=== PATIENT | male | born 1945 | race Caucasian/White ===

== ENCOUNTER 2025-03-15 13:52 | Outpatient (REF) | payer MEDICARE, SELFPAY ==
--- NOTE | ~2025-03-15 | XR_ITS ---
EXAMINATION: XR LUMBAR SPINE 4 OR MORE VIEWS HISTORY: M48.062 - Spinal stenosis, lumbar region with neurogenic claudication COMPARISON: There are no prior studies for comparison. FINDINGS: AP, and neutral, flexion, and extension lateral views of the lumbar spine are submitted. The bones are osteopenic. There is a moderate compression deformity of L3 which appears chronic. The remaining vertebral bodies maintain normal height. There is slight retrolisthesis of L1 on L2, L2 on L3, and L3 on L4. There is grade II spondylolisthesis of L5 on S1. There is no significant change in flexion or extension. There is moderate degenerative disc disease with disc space narrowing and osteophyte formation. There is calcification of the abdominal aorta. XR/XR lumbar spine 4V min IMPRESSION: 1. Osteopenia. Moderate compression deformity of L3 which appears chronic. 2. Moderate degenerative disc disease. 3. Slight retrolisthesis of L1 on L2, L2 on L3, and L3 on L4. 4. Grade II spondylolisthesis of L5 on S1 without significant change in flexion or extension. Electronically signed by: Jaiden Qiu MD 03/15/2025 02:43 PM EST
== END 2025-03-15 13:53 | disposition home or self-care (01) ==
LOC: HO.HOSX 13:52
PROVIDERS: Visit Provider Neurological Surgery
DX: M48.062 Spinal stenosis, lumbar region with neurogenic claudication (principal)
CPT/HCPCS: 72110; 99202

== ENCOUNTER 2025-03-15 13:52 | Outpatient (AMB) | payer MEDICARE, SELFPAY ==
--- OUTSIDE RECORDS SUMMARY | 2025-03-14 06:15 | XMS_ITS ---
Author Organization [facility] Address [address] [place] [address] Care Team Providers Care Drilling Foreman Name Role Phone Didier Stanley MD Primary Care Provider Unava ilable Black, Caroline Unavailable [phone] Allergies No Known Allergies REASON FOR VISIT At Risk Footcare, Skin Problem, Ingrown Nail Medications Medication SIG (Take, Route, Frequency, Duration) Notes Start Date End Date Status Celecoxib Active Warfarin Sodium Acti ve Extra Depth Orthopedic Shoes (1 Pair) with Customized Heat Molded Multidensity Innersoles (3 Pair) Dx: NIDDM/Polyneuropathy (E11.42), Hammertoe Foot Deformity (M20.41,M20.42), Preulcerative Skin Lesion(s) (L85.1); Duration: 365 days 12/09/2024 Active Ketoconazole 2 % 1 application Apply a thin layer to externally to feet, even between toes Twice a day; Duration: 30 days Active Progesterone Active metFORMIN HCl 500 MG 1 tablet with a petty l Orally Once a day Active dilTIAZem HCl Active Allopurinol Active Spironolactone Activ e Lisinopril Active Social History Tobacco Use: Social History Observation Description Date Details (start date - stop date) Never Smoker NA - NA Tobacco use other than smoking: Question Answer Notes Are you an other tobacco user? No Tobacco Control (Standard) Question Answer Notes Tobacco use: Nonsmoker Additional Findings: Tobacco non-user Current no nsmoker AUDIT-C (Standard) Question Answer Notes Did you have a drink containing alcohol in the p ast year? No Points 0 Interpretation Negative Vital Signs Height 6 ft in 03/14/2025 Weight 230 lbs 03/14/2025 BMI 31.19 kg/m2 03/14/2025 Blood pressure systolic 130 mm Hg 03/14/20 Blood pressure diastolic 70 mm Hg 025 Procedures Procedure Date Ordered Date Performed Result Body Sit e 43285-NYTVQOL NAIL, 6 OR MORE 03/14/2025 N/A 46555-Ghllrtik Plate 03/14/2025 N/A 31153-FWQH SKIN LESIONS, OVER 4 03/14/2025 N/A Encounters Encounter Location Date Provider Diagnosis [facility] [address] [place] [address] 03/14/2025 Caroline Cantu Type 2 diabetes ronnie itus with diabetic polyneuropathy E11.42 ; Tinea unguium B35.1 ; Tinea pedis of both feet B35.3 and Ingrown nail L60.0 Assessments Encounter Date Diagnosis (ICD Code) Assessment Notes Treatment Notes Treatment Clinical Notes Section Notes 03/14/2025 Type 2 diabetes mellitus with diabetic polyneuropathy (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) 03/14/2025 Tinea unguium (ICD-10 - B35.1) 03/14/2025 Tinea pedis of both feet (ICD-10 - B35.3) 03/14/2025 Ingrown nail (ICD-10 - L60.0) 03/14/2025 Other Plan Of Treatment Pending Test Test Name Order Date 45160-SVDHPWG NAIL, 6 OR MORE 03/14/2025 04516-Fxwaicns Plate 03/14/2025 81395-YUIA SKIN LESIONS, OVER 4 03/14/20 25 Next Appt Details Follow Up: 2 Weeks,prn, Reas on: Provider Name:Caroline Cantu , 06/16/2025 12:45:00 PM, [address] [facility], [place], [address], Procedure Notes * Category Sub-Category Detail Notes Nail Avulsion Procedure A fine sterile e levator was placed between the eponychium, nail fold, and nail plate to separate the structures. A sterile nail splitter, and/or sterile 316 blade, was then used to longitudinally section the nail along its entire length through the eponychium to the area under the nail fold. The offending portion of nail was from the nail bed with a rolling action and then removed with a hemostat. No underlying bone was identified. There was minimal bleeding as hemostasis was achieved through the temporary use of either a digital tourniquet or the aforementioned local with epinephrine. A bacitracin sterile dressing was applied. Local wound aftercare instructions were discussed and dispensed. The patient was informed of both conservative and future surgical procedures to prevent recurrence. 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 Therefore, debridement to affected nail(s), as described in exam ( TA, T1, T2, T3, T4, T5, T6, T7, T8, T9, ___ ), was performed exclusively by the physician of record to reduce/remove overall nail length, girth, thickness, subungual debris, and necrotic tissue, by manual and/or electrical means through the use of a nail nipper and/or dremel-type wood grinder operator, to a more viable healthy nail plate or bed tissue 6-10 nails in total. Silver nitrate was used for any petechial bleeding as necessary. Definitive antifungal treatment options, both pharmaceutical and surgical, have been reviewed and discussed with the patient. The patient solely prefers the use of intermittent/as needed professional debridement services for their nail condition and understands the need for additional periodic treatments to maintain effectiveness in symptomatic relief - 31465 Keratoma Treatment Parring or Cutting o f Benign Hyperkeratotic Lesion(s) , (-57) More than 4 Lesions - Due to the at risk nature of the patients medical condition as documented in the exam findings, performance of this keratoderma treatment is medically necessary as its management by an unskilled/untrained nonprofessional would put this patients foot and overall health at risk. Therefore, the benign hyperkeratotic lesions, (_6_) in total, locations as stated and described in the exam (, Plantar Heel(s),B/L,SUB MTH (s),1B/L SUB 2.3 Left MTH (s)), were pared, and/or cut utilizing a sterile 15 blade, tissue nippers, and/or power dremel instrumentation by the physician of record - 47242 Progress Notes * Jj CHAVEZ BDOB: (79 yo M)Acc No.[id number]:03/14/2025 Progress Note Patient: Jj BANEGAS B Provider: Kandis Cantu DPM :1945 A ge:79 Y S ex:Male Date:03/14/2025 Address:[address] [place] [address], [facility] Pcp:Didier Stanley MD Subjective: * Chief Complaints: * A t Risk FootcareSkin ProblemIngrown Nail * HPI: A t Risk footcare: Pt States Last PCP Visit: D ate 0 01/09/2025 S kin problems: Nature: s caling , redness. Location: B /L . Duration: s everal days. Course: , improved, at 70 %. Treatments: T opical OTC antifungal cream is no longer effective, has not relieved condition, Medication ( Ketoconazole 2 percent cream ), admits intermittent adherence to recommended application. * ROS: G eneral/Constitutional: Nausea d enies. V omiting d enies. H ernesto Thirst d enies. L oss appetite d enies. C hills d enies. F atigue d enies.?Fever d enies. N ight Sweats d enies. U nexplained weight loss d enies. U nexplained weight gain d enies. H EENTM: Dentures a dmits. D izziness d enies. G lasses/contacts d enies. R etinopathy d enies. B lurred/double vision d enies. T MJ?denies. D ischarge/drainage d enies. I mplants d enies. S ore throat d enies. D ental implants a dmits. H randy of hearing d enies. D ifficulty chewing/swallowing/speaking d enies. N ose bleeds d enies. S ore mouth d enies. ? R espiratory: On Oxygen d enies. P neumonia/pleurisy d enies.?Bronchitis d enies. E mphysema d enies. C oughing d enies. C ough blood?denies. S hortness of breath d enies. W heezing d enies. C ardiovascular: Pacemaker d enies. M CRYSTAL REPORT DEVELOPER d enies. W PW d enies. C HF d enies. H eart attack d enies. S eptal defect d enies. R apid beat d enies. C hest pain d enies. A trial Fib. a dmits. M urmur/Palpitations d enies. G astrointestinal: Hemorrhoids d enies. S tomach/Abdominal pain d enies. D ark blood stool d enies. I rritable bowel d enies. C onstipation d enies. D iarrhea d enies. H ematology: Swelling d enies. C lots d enies. V aricose Veins d enies. B ruising d enies. B leeding problem d enies. G enitourinary: Blood urine d enies. F requent/Painfu/urination/bladder control d enies. K idney stones d enies. I nfection (UTI) d enies. N ephropathy d enies. s ex trans dis (STD) d enies. P rostate a dmits. M usculoskeletal: Hammertoes d enies. B unions d enies. B ack Pain a dmits. M uscle Cramps/ Resting d enies. M uscle cramps / walking d enies.?Generalized aches and pains a dmits. W eakness d enies. I nteg.: Lafleur d enies. S cars d enies. C orns/calluses?, admits. I ngrown nails d enies. P ainful nails d enies. O pen Sores d enies. R ashes d enies. N eurologic: Difficulty sleeping d enies. B rain disorder d enies. N umbness d enies. B alance trouble a dmits. C onfusion d enies. F ainting/blackouts d enies. T ingling d enies. T remors d enies. * Medical History: * Surgical History: k nee surgery * Hospitalization/Major Diagno stic Procedure: D enies Past Hospitalization * Family History: M other: , diagnosed with Other malignant neoplasm of unspecified site, Diabetic - NIDDM, Unspecified essential hypertension, Family history of arthritis. F ather: . * Social History: T obacco Use: T obacco use other than smoking A re you an other tobacco user? N o Tobacco Control (Standard) T obacco use: N onsmoker A dditional Findings: Tobacco non-user C urrent nonsmoker D rugs/Alcohol: D rugs H ave you used drugs other than those for medical reasons in the past 12 months? N o M iscellaneous: C affeine: yes, 1-2 cups per day. Children: yes, 1. Exercise: no. Marital status: . Occupation: Retired. D rug/Alcohol: A LINH-C (Standard) D id you have a drink containing alcohol in the past year? N o P oints 0 I nterpretation N egative * Medications: T akingLisinopril Spironolactone metFORMIN HCl 500 MG Tablet 1 tablet with a meal Orally Once a day Allopurinol dilTIAZem HCl Warfarin Sodium Celecoxib Progesterone Ketoconazole 2 % Cream 1 application Apply a thin layer to externally to feet, even between toes Twice a day Extra Depth Orthopedic Shoes (1 Pair) with Customized Heat Molded Multidensity Innersoles (3 Pair) Dx: NIDDM/Polyneuropathy (E11.42), Hammertoe Foot Deformity (M20.41,M20.42), Preulcerative Skin Lesion(s) (L85.1) Medication List reviewed and reconciled with the patientTaking Lisinopril Taking Spironolactone Taking metFORMIN HCl 500 MG Tablet 1 tablet with a meal Orally Once a day Taking Allopurinol Taking dilTIAZem HCl Taking Warfarin Sodium Taking Celecoxib Taking Progesterone Taking Ketoconazole 2 % Cream 1 application Apply a thin layer to externally to feet, even between toes Twice a day Taking Extra Depth Orthopedic Shoes (1 Pair) with Customized Heat Molded Multidensity Innersoles (3 Pair) Dx: NIDDM/Polyneuropathy (E11.42), Hammertoe Foot Deformity (M20.41,M20.42), Preulcerative Skin Lesion(s) (L85.1) Medication List reviewed and reconciled with the patient * Allergies: N .K.D.A.yes[Allergies Verified] Objective: * Vitals: H t: 6 ft, Wt: 230, BMI: 31.19, Shoe size: 10W, BP: 130/70 mm Hg, BS: not taken, Ht-cm: 182.88 cm, Wt-k.33 kg. * P ast Orders: L ab:HEMOGLOBIN A1C (GLYCOHEMOGLOBIN) (Order Date - 08/10/2024) (Collection Date & Time - 03/14/2025 11:20 AM) Value Reference Range HEMOGLOBIN A1C % (HH) 6.5 * Examination: O phthalmology Referral: DIABETES EYE EXAM P rocedure Performed: Steve gaitan D ate of Exam Performed 1 06/12/2023 D iabetic Retinopathy Screening: Y es F indings of Diabetic Eye Exam: n o retinopathy G eneral Examination: GENERAL APPEARANCE: R eveals a pleasant, alert, well nourished, well-developed, well hydrated individual, who demonstrates proper attention to hygiene/body habitus, and is in no acute distress, Pt serves as own historian for office visit today. ORIENTED: p erson, place, and time. Footwear Evaluation F ootwear Evaluation performed: Y kandy N eurological: SENSORY: N eurological exam demonstrates inability for patient to distinguish sharp/dull pin prick discrimination, reduced, light touch sensation, reduced, vibration sensation,reduced, proprioception identification, in a stocking fashion, B/L. Test with 5.07 [place] monofilament performed at plantar aspects of 5 varied sites per foot shows sensation absent in at least 2 locations, B/L. O rthopedic: MUSCLE STRENGTH: 5 /5 all groups in a symmetrical fashion, B/L. 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 DIGITAL DEFORMITIES: D igital contracture, PIPJ, 2-5 B/L, incompl-reducible to push-up test, no over, nor underlapping, t here is e vidence of shoe producing skin irritation. FOOTWEAR EVALUATION: w orn, non-supportive, shoe gear properties exacerbate patients complaints in relation to their foot/toe deformity, Non-Diabetic with no OT. V ascular: DP PULSES (B): , 1/4, B/L. PT PULSES (B): 1 /4, B/L. CAPILLARY FILL TIME: d elayed, all digits, B/L. TROPHIC CONDITION-TEXTURE/ELASTICITY/TURGOR/HAIR GROWTH (B):?with sparse to absent hair growth, B/L. PIGMENTATION: h emosiderin deposition B/L. EDEMA (C): a bsent, B/L. D ermatologic: SKIN FINDINGS: S kin exam reveals Keratotic lesion(s) located at Medial plantar, Plantar Heel(s),B/L,SUB MTH (s),1B/L SUB 2.3 Left MTH (s), , , , Skin shows sign(s) of, erythema, scaling, in a moccasin fashion, no fissure(s) present, B/L, B/L, approximately 70 percent LESS. N ails: NAILS are: E longated, overgrown, dystrophic, lytic, greater than 3mm thick, discolored and friable with crumbly malodorous subungual debris, TA, T1, T2, T3, T4, T5, T6, T7, T8, T9. I ngrown Nail: INSPECTION: R eveals nail incurvation, pain on palpation, groove hypertrophy, Medial nail border, TA. Assessment: * Assessment: 1. T ype 2 diabetes mellitus with diabetic polyneuropathy - E11.42 (Primary) 2 . T inea unguium - B35.1 3 . T inea pedis of both feet - B35.3 ?Specify :Acute problem, Uncomplicated (3), Rx drug management (4) Response to treatment - Improvement 4 . I ngrown nail - L60.0 S pecify :medial TA Plan: * Treatment: 2. T inea unguium P rocedure: 23356-GFIVGLP NAIL, 6 OR MORE 3. I ngrown nail P rocedure: 13078-Xbyepavq Plate * Procedures: D ebride Nail 6-10: Nail debridement D ue to the clinical pathology outlined in the exam findings, performance of this nail treatment is medically necessary as its management by an unskilled/untrained nonprofessional would put this patients foot and overall health at risk. Therefore, debridement to affected nail(s), as described in exam ( TA, T1, T2, T3, T4, T5, T6, T7, T8, T9, ___ ), was performed exclusively by the physician of record to reduce/remove overall nail length, girth, thickness, subungual debris, and necrotic tissue, by manual and/or electrical means through the use of a nail nipper and/or dremel-type wood grinder operator, to a more viable healthy nail plate or bed tissue 6-10 nails in total. Silver nitrate was used for any petechial bleeding as necessary. Definitive antifungal treatment options, both pharmaceutical and surgical, have been reviewed and discussed with the patient. The patient solely prefers the use of intermittent/as needed professional debridement services for their nail condition and understands the need for additional periodic treatments to maintain effectiveness in symptomatic relief - 14867. K eratoma Treatment: Parring or Cutting of Benign Hyperkeratotic Lesion(s) , (-57) More than 4 Lesions - Due to the at risk nature of the patients medical condition as documented in the exam findings, performance of this keratoderma treatment is medically necessary as its management by an unskilled/untrained nonprofessional would put this patients foot and overall health at risk. Therefore, the benign hyperkeratotic lesions, (_6_) in total, locations as stated and described in the exam (, P lantar Heel(s),B/L,SUB MTH (s),1B/L S UB 2.3 Left MTH (s)), were pared, and/or cut utilizing a sterile 15 blade, tissue nippers, and/or power dremel instrumentation by the physician of record - 69532. N ail Avulsion: Location , Medial nail border, TA. Anesthesia , was deferred - NEUROPATHY: patient has medically documented neuropathic condition affecting sensation. Procedure A fine sterile elevator was placed between the eponychium, nail fold, and nail plate to separate the structures. A sterile nail splitter, and/or sterile 316 blade, was then used to longitudinally section the nail along its entire length through the eponychium to the area under the nail fold. The offending portion of nail was from the nail bed with a rolling action and then removed with a hemostat. No underlying bone was identified. There was minimal bleeding as hemostasis was achieved through the temporary use of either a digital tourniquet or the aforementioned local with epinephrine. A bacitracin sterile dressing was applied. Local wound aftercare instructions were discussed and dispensed. The patient was informed of both conservative and future surgical procedures to prevent recurrence. Tylenol or Motrin was recommended for pain or discomfort - 08234, , DIABETES: Matricectomy deferred at this time due to diabetes risk.? * Procedure Codes: 1 1721 DEBRIDE NAIL, 6 OR MORE, Modifiers: XS 78097 Avulsion Plate, [place]: [place] [address] TRIM SKIN LESIONS, OVER 4, Modifiers: XS * Preventive Medicine: Counseling: D iscussion: - 12: Office or other outpatient visit for the evaluation and management of an established patient, which required a medically appropriate history and/or examination and STRAIGHTFORWARD level of MEDICAL DECISION MAKING, 1 SELF-LIMITED OR MINOR PROBLEM, MINIMAL- NO AMOUNT/COMPLEXITY OF DATA TO BE REVIEWED/ANALYZED, AND MINIMAL RISK OF COMPLICATION/MORBIDITY. The visit on the day of the encounter encompassed interpreting the data and educating the patient as to the nature of their condition, treatment options available according to their individual PMH, meds, allergies, and overall health/living conditions, as well as any potential risks or complications that may occur from a failure to adhere to, and participate in, the recommended course of therapy. The discussion included a complete verbal, and/or written explanation of the examination results, any x-rays taken, the proposed diagnosis, and outline of the treatment plan. A schedule for future care needs was also explained. The patient verbalized an understanding of the instructions at this time and agreed to be an active participant in their treatment. If the patient should think of any questions or concerns after the visit, I have encouraged the patient to call the office. X erosis: G iven recent successful results to treatment, The patient is to cont the rx cream as directed. * Follow Up: 2 Weeks,prn * Images: * Sign off status: Completed true * Provider: Kandis Cantu DPM Date: 05/14/2024 Generated for Tello simental/Yoon/Nael on: 05/15/2024 05:04 PM EST History and Physical Notes * HPI (History of Present Illness) Category Sub-Category Detail Notes Category Not es Skin problems Nature: scaling , redness Location: B/L Duration: several days Course: , improved, at 70 % Treatments: Topical OTC antifung al cream is no longer effective, has not relieved condition, Medication ( Ketoconazole 2 percent cream ), admits intermittent adherence to recommended application At Risk footcare Pt States Last PCP Visit: Date: 5 Examination Category Sub-Category Detail Notes Category Not es Ingrown Nail INSPECTION: Reveals nail inc urvation, pain on palpation, groove hypertrophy, Medial nail border, TA Neurological SENSORY: Neurological exa m demonstrates inability for patient to distinguish sharp/dull pin prick discrimination, reduced, light touch sensation, reduced, vibration sensation,reduced, proprioception identification, in a stocking fashion, B/L. Test with 5.07 [place] monofilament performed at plantar aspects of 5 varied sites per foot shows sensation absent in at least 2 locations, B/L Dermatologic SKIN FINDINGS: Skin exam reveal s Keratotic lesion(s) located at Medial plantar, Plantar Heel(s),B/L,SUB MTH (s),1B/L SUB 2.3 Left MTH (s), , , , Skin shows sign(s) of, erythema, scaling, in a moccasin fashion, no fissure(s) present, B/L, B/L, approximately 70 percent LESS Orthopedic FOOT MORPHOLOGY: (-) Charcot col lapse/destruction noted at MTJ, Pes Cavus structure, B/L FOOTWEAR EVALUATION: worn, non-supportiv e, shoe gear properties exacerbate patients complaints in relation to their foot/toe deformity, Non-Diabetic with no OT DIGITAL DEFORMITIES: Digital contracture , PIPJ, 2-5 B/L, incompl-reducible to push-up test, no over, nor underlapping, there is evidence of shoe producing skin irritation MUSCLE STRENGTH: 5/5 all groups in a symmetrical fashion, B/L General Examination GENERAL APPEARANCE: Reveals a pleasant, alert, well nourished, well-developed, well hydrated individual, who demonstrates proper attention to hygiene/body habitus, and is in no acute distress, Pt serves as own historian for office visit today ORIENTED: person, place, and t tristen Footwear Evaluation Footwear Evaluation performe d:: Yes Ophthalmology Referral DIABETES EYE EXAM Procedure Perform ed:: Yes Date of Exam Performed: 04/11/2024 Diabetic Retinopathy Screening:: Yes Findings of Diabetic Eye Exam:: no retin opathy Vascular DP PULSES (B): , 1/4, B/L PT PULSES (B): 1/4, B/L CAPILLARY FILL TIME: delayed, all digits , B/L TROPHIC CONDITION-TEXTURE/ELASTICITY/TURGOR/HAIR GROWTH (B): with sparse to absent hair growth, B/L EDEMA (C): absent, B/L PIGMENTATION: hemosiderin depositi on B/L Nails NAILS are: Elongated, overg rown, dystrophic, lytic, greater than 3mm thick, discolored and friable with crumbly malodorous subungual debris, TA, T1, T2, T3, T4, T5, T6, T7, T8, T9
--- NOTE | 2025-03-15 13:58 | A.SPINEOV_ITS ---
Vital Signs 03/15/25 14:14 Height 5 ft 11 in Weight 230 lb BMI 32.1 Intake Visit Reasons: LBP Intake Note: Mr. Mariee is here today c/o Low back pain. 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 HPI: This 79-year-old male has a progressive history of pain in the lumbosacral area that radiates to his buttocks in his hips with walking and standing. Currently he can hardly walk. He can stand for a few minutes before he has to sit down. Leaning forward over a shopping cart, sitting down or laying down improves/alleviates his symptoms. He denies numbness or weakness. The following conservative treatment options were tried without success antiinflammatories, tylenol, physical therapy, chiropractic therapy and cortis one shots PMH: Diabetes, hypertension, rheumatoid arthritis, stroke in 2018 Medications: Spironolactone, lisinopril, diltiazem, warfarin and metformin Allergies: NKDA Social history: Retired. Nonsmoker. Physical Exam: Pleasant male. Height 5'11 weight 230 lb. He stands in a flexed position. The ambulates with a cane. He is able to produce the symptoms after short period standing in the office. No motor or sensory deficits. No pathological reflexes Radiological Studies: MRI of the lumbar spine done at [facility] on 08/20/2024 shows multilevel degenerative changes a mild to moderate spinal stenosis L3-4, L4-5. Standing x-ray with flexion-extension shows no signs of instability. It does show osteoporosis. Impression/Plan: This 79-year-old male is suffering from neurogenic back pain without claudication symptoms. These symptoms do not respond well to surgical decompression. Unfortunately, I can not help this patient. Apparently, another neurosurgeon gave him the same opinion. Thank you for allowing me to participate in your patients care. total time spent was 50 minutes in counseling ,coordination of plan, personal review of imaging, surgical decision making and subsequent plan Rod Torres MD, PhD Spine Fellowship Trained Neurosurgeon Director, [facility] Orders: Orders XR lumbar spine 4V min Today M48.062 - Spinal stenosis, lumbar region with neurogenic claudication Coding Level of Care Code New Pt Level 4 (14313) Diagnoses Lumbar stenosis with neurogenic claudication M48.062
[2025-03-15 14:14] VITALS: BMI 32.1
--- OUTSIDE RECORDS SUMMARY | 2025-03-15 17:05 | XMS_ITS | Patient Health Record ---
[facility] Address [address] [place] [address] Care Team Providers Care Career And Technology Education Teacher Name Role Phone Didier Stanley MD Primary Care Provider Unava ilable Black, Caroline Unavailable [phone] Allergies No Known Allergies Results Component Value Reference Range Notes HEMOGLOBIN A1C (GLYCOHEMOGLO BIN) Reviewed date:03/14/2025 11:20:55 AM Interpretation: Performing Lab: Notes/Report: HEMOGLOBIN A1C % (HH) 6.5 HEMOGLOBIN A1C (GLYCOHEMOGLO BIN) Reviewed date:12/09/2024 10:35:38 AM Interpretation: Performing Lab: Notes/Report: HEMOGLOBIN A1C % (HH) 6.5 Reason For Referral No Information Medications Medication SIG (Take, Route, Frequency, Duration) Notes Start Date End Date Status metFORMIN HCl 500 MG 1 tablet with a petty l Orally Once a day Active Celecoxib Active Warfarin Sodium Acti ve dilTIAZem HCl Active Allopurinol Active Extra Depth Orthopedic Shoes (1 Pair) with Customized Heat Molded Multidensity Innersoles (3 Pair) Dx: NIDDM/Polyneuropathy (E11.42), Hammertoe Foot Deformity (M20.41,M20.42), Preulcerative Skin Lesion(s) (L85.1); Duration: 365 days 12/09/2024 Active Ketoconazole 2 % 1 application Apply a thin layer to externally to feet, even between toes Twice a day; Duration: 30 days Active Progesterone Active Spironolactone Activ e Lisinopril Active Immunizations Vaccine Route Administration Date Status Comme nts Influenza Unknown 12/09/2024 Refused Social History Tobacco Use: Social History Observation [...] ast year? No Points 0 Interpretation Negative Problems Problem Type SNOMED Code ICD Code Onset Dates Problem Status W/U Status Risk Notes Problem Acquired hammer toe of right foot (8730365284049864 ) Other hammer toe(s) (acquired), right foot (M20.41) Active confirmed Problem Acquired hammer toe of left foot (3550863833510788 ) Other hammer toe(s) (acquired), left foot (M20.42) Active confirmed Problem Polyneuropathy due to type 2 diabetes mellitus (969142080) Type 2 diabetes mellitus with diabetic polyneuropathy (E11.42) Active confirmed Vital Signs Blood pressure diastolic 70 mm Hg 03/14/2025 Height 6 ft in 03/14/2025 Blood pressure systolic 130 mm Hg 03/14/2025 Weight 230 lbs 03/14/2025 BMI 31.19 kg/m2 03/14/2025 Procedures Procedure Date Ordered Date Performed Result Body Sit e 80659-EVCWEJK NAIL, 6 OR MORE 12/09/2024 N/A 75942-RKDJ SKIN LESIONS, OVER 4 12/09/2024 N/A 64662-KHEPMOT NAIL, 6 OR MORE 03/14/2025 N/A 52765-Dzcrlbxr Plate 03/14/2025 N/A 07679-QJLJ SKIN LESIONS, OVER 4 03/14/2025 N/A Encounters Encounter Location Date Provider [facility] [address] 12/09/2024 Caroline Black Type 2 diabetes mellitus with diabetic polyneuropathy E11.42 ; Tinea unguium B35.1 ; Other hammer toe(s) (acquired), right foot M20.41 ; Other hammer toe(s) (acquired), left foot M20.42 and Tinea pedis of both feet B35.[address] [facility] [place] [address] 03/14/2025 Caroline Cantu Type 2 diabetes mellitus with diabetic polyneuropathy E11.42 ; Tinea unguium B35.1 ; Tinea pedis of both feet B35.3 and Ingrown nail L60.0 [facility] [place] [address] [place] [address] 11/01/2024 Caroline Cantu Assessments Encounter Date Diagnosis (ICD Code) Assessment Notes Treatment Notes Treatment Clinical Notes Section Notes 12/09/2024 Type 2 diabetes mellitus with diabetic polyneuropathy (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) 12/09/2024 Tinea unguium (ICD-10 - B35.1) 03/14/2025 Type 2 diabetes mellitus with diabetic polyneuropathy (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) 03/14/2025 Tinea unguium (ICD-10 - B35.1) 03/14/2025 Tinea pedis of both feet (ICD-10 - B35.3) 12/09/2024 Other hammer toe(s) (acquired), right foot (ICD-10 - M20.41) Patient Educated with: DIABETIC FOOT CARE INSTRUCTIONS. pdf (DIABETIC FOOT CARE INSTRUCTIONS. pdf) 12/09/2024 Other hammer toe(s) (acquired), left foot (ICD-10 - M20.42) 03/14/2025 Ingrown nail (ICD-10 - L60.0) 12/09/2024 Tinea pedis of both feet (ICD-10 - B35.3) Patient Educated with: ATHELETE .pdf (ATHELETE .pdf) 03/14/2025 Other Plan Of Treatment Pending Test Test Name Order Date [id number] NAIL, 6 OR MORE 12/09/2024 76166-ANBGSMY NAIL, 6 OR MORE 03/14/2025 63772-Fcjzonpl Plate 03/14/2025 06295-FEVS SKIN LESIONS, OVER 4 03/14/20 61116-VYYC SKIN LESIONS, OVER 4 12/10/19 Next Appt Details Provider Name:Caroline Cantu , 06/16/2025 12:45:00 PM, [address] [facility], [place], [address], Insurance Providers Payer Name Payer Address Payer Phone Subscriber Number Group Number Insured Name Patient Relationship to Insured Coverage Start Date Coverage End Date Medicare [employer] [address] [place] [address] [id number] Self - patient is the insured 2 [employer] Secondary to Medicare [address] [place] [id number] Self - patient is the insured 8 Medical (General) History Medical History History ICD Code Arthritis (OA, RA) Back, Hip, Knee Pain Cancer Cataracts Covid-19 Diabetes Gout Numbness (Neuropathy) Stroke Measles Mumps Chicken Pox Surgical History Surgery Date(Month/Year) knee surgery
== END 2025-03-15 15:24 | disposition home or self-care (01) ==
LOC: HO.HNS 13:53
PROVIDERS: Visit Provider Neurological Surgery
DX: M48.062 Spinal stenosis, lumbar region with neurogenic claudication (principal)
CPT/HCPCS: 99204

== ENCOUNTER → 2025-03-15 14:31 | Outpatient (BNV) | payer MEDICARE, SELFPAY | PROVIDERS: Visit Provider Radiology Diagnostic Radiology | DX: M48.062 Spinal stenosis, lumbar region with neurogenic claudication (principal); M51.369 Other intervertebral disc degeneration, lumbar region without mention of lumbar back pain or lower extremity pain; M43.17 Spondylolisthesis, lumbosacral region | CPT/HCPCS: 72110 ==